=== PATIENT | female | born 2000 | race Caucasian/White ===

== ENCOUNTER 2025-02-24 07:15 | Emergency (ER) | payer OTHER, SELFPAY ==
[2025-02-24 07:25] VITALS: BP 119/78
[2025-02-24 07:34] VITALS: BMI 23.6
[2025-02-24 07:50] VITALS: BP 119/66
[2025-02-24 07:59] LABS: Hematocrit 35.3 % (37.0-47.0); Hemoglobin 11.1 g/dL (12.0-16.0); Mean Corp Hgb Conc. 31.4 g/dL (33.0-37.0); Mean Corpuscular Volume 75.3 fL (81.0-99.0); Nucleated Red Blood Cells % 0 %; Platelet Count 293 10^3/uL (130-400); Red Cell Dist. Width 14.8 % (11.5-14.5)
[2025-02-24 08:00] VITALS: BP 125/76
--- NOTE | 2025-02-24 08:14 | ED.GENMED ---
History of Present Illness
General
Chief Complaint: Abdominal Pain
Time Seen by Provider: 02/24/25 07:42
History of Present Illness
History of Present Illness:
24-year-old female presents emergency department for evaluation of Right lower quadrant/right pelvic pain for the past 3 to 4 days. Pain seems to wax and wane and when it maximizes point severe. Denies any nausea vomiting diarrhea, dysuria,
hematuria, or fever/chills. No history of abdominal surgeries. Last menstrual cycle was 2 weeks ago.
Past History
Social History
Tobacco: Non-smoker
Alcohol: None
Drug: None
Review of Systems
Review of Systems
Allergies reviewed?: Yes
All Other Systems: ROS reviewed and negative except as documented in HPI and ROS
Phy Exam
Physical Exam
Physical Exam:
GEN: Well appearing, NAD, WDWN
HEENT: Oral mucosa moist, no scleral icterus
Cardiac: Regular rate
Lung: No respiratory distress, no tachypnea
Abdomen: Soft, focal right pelvic tenderness, moderate diffuse tenderness noted, no rigidity
MSK: No gross deformity or injuries
Skin: Good color, no pallor or jaundice, no rashes
Neuro: AO x3, moves all extremities freely
Psych: Calm, cooperative
Course
Orders/Labs/Results
Orders:
Orders
02/24/25 07:43
US Pelvis W Transvag Combined Urgent
Comment:
Reason For Exam: R pelvic pain
02/24/25 07:44
Test Result ONCE
02/24/25 07:48
Complete Blood Count/With Diff Urgent
Comprehensive Metabolic Panel Urgent
HCG, Serum Qualitative Screen Urgent
Urinalysis Reflex To Culture Urgent
Date Specimen was Collected: 02/24/25
Time Specimen was Collected: 07:47
Abnormal Lab Results
02/24/25
07:48
Hgb 11.1 L g/dL
(12.0-16.0)
Hct 35.3 L %
(37.0-47.0)
MCV 75.3 L fL
(81.0-99.0)
MCH 23.7 L pg
(27.0-31.0)
MCHC 31.4 L g/dL
(33.0-37.0)
RDW 14.8 H %
(11.5-14.5)
Glucose 105 H mg/dl
(70-99)
02/24/25 07:48
02/24/25 07:48
Vital Signs
Initial and Last Documented VS:
Initial Vital Signs
Temp Pulse Resp BP Pulse Ox
98.1 F 87 18 119/78 98
02/24/25 07:25 02/24/25 07:25 02/24/25 07:25 02/24/25 07:25 02/24/25 07:25
Last Documented Vital Signs
Temp Pulse Resp BP Pulse Ox
98.1 F 87 18 125/76 98
02/24/25 07:25 02/24/25 07:25 02/24/25 07:25 02/24/25 08:00 02/24/25 08:16
MDM/Problems Addressed
MDM/Problems Addressed:
Ultrasound reveals hemorrhagic ovarian cyst with fluid in the pelvic cul-de-sac which is a clear etiology for her symptoms. 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 She is
clinically well and stable with no signs of hemodynamic instability. 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
*Pulse Oximetry
SaO2: 98
Oxygen Mode of Delivery: Room air
Patient hypoxic: no
*Critical Care Note
Total Time (30-74mins, 75-104mins- exclusive of procedures): Not Applicable
ED Attending Note
-
Portions of this chart may have been created with voice recognition software.� Occasional wrong word or��sound alike� substitutions may have occurred due to the inherent limitations of voice recognition software.
Discharge Plan
Departure
Patient Disposition: Home (Routine Discharge)
Date of Disposition: 02/24/25
Time of Disposition: 09:55
Patient with high blood pressure during this ER visit?: No
Discharge Problem:
Hemorrhagic cyst of right ovary
Instructions: Ovarian Cyst (DC)
Prescriptions:
No Action
No Meds [No Current Medications]
0
diazepam 10 MG tablet
10 mg IN ONCE PRN (Reason: seizure) Qty: 1 0RF
Patient Comments:
has not used any
Referrals:
UNKNOWN - PT NOT,INTERVIEWE [Family Provider]
Activity Restrictions/Additional Instructions:
Your symptoms should improve over the next several days and typically do not last longer than 7 to 10 days in total. 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
Interventions
Interventions:
*Risk Screen - Suicide Last Done: 02/24/25 07:22
*General Assessment Last Done: 02/24/25 07:22
*Neglect/Abuse Screening Last Done: 02/24/25 07:22
*ED- Fall Risk Assessment Last Done: 02/24/25 07:34
*ED COVID-19 Vaccine History Last Done: 02/24/25 07:34
*ED Influenza Vaccine History Last Done: 02/24/25 07:34
*Nursing Disposition Last Done: 02/24/25 10:00
DK-Thnmjw-Wlwcuyasum Assessment Last Done: 02/24/25 07:34
Discharge Date and Time
Discharge Date/Time: 02/24/25 10:01
Print Language: ROMANSH
[2025-02-24 08:22] LABS: HCG, Serum Qualitative Screen Negative
[2025-02-24 08:26] LABS: ALT (SGPT) 14 U/L (0-35); AST (SGOT) 18 U/L (14-36); Albumin 4.3 g/dl (3.5-5.0); Alkaline Phosphatase 50 U/L (38-126); Blood Urea Nitrogen 10 mg/dl (7-17); Calcium 9.2 mg/dl (8.4-10.2); Carbon Dioxide 26 mmol/L (22-30); Chloride 103 mmol/L (98-107); Estimated Creatinine Clearance 119 ml/min; Glucose 105 mg/dl (70-99); Potassium 3.8 mmol/L (3.5-5.1); Sodium 135 mmol/L (135-145); Total Protein 7.1 g/dl (6.3-8.2); eGFR > 60.00
[2025-02-24 10:06] LABS: Urine Character Clear (Clear)
== END 2025-02-24 10:01 | disposition home or self-care (01) ==
LOC: EMR 07:15
PROVIDERS: Physician Assistant; EMERGENCY PHYSICIAN Student in an Organized Health Care Education/Training Program
DX: N83.201 Unspecified ovarian cyst, right side (principal); Z86.61 Personal history of infections of the central nervous system
CPT/HCPCS: 99284; 76830; 76856; 80053; 81003; 84703; 85025